=== PATIENT | female | born 1995 | race Caucasian/White ===

== ENCOUNTER 2017-04-04 15:43 | Emergency (ER) | payer OTHER ==
[2017-04-04 15:50] VITALS: BP 125/85; PULSE 72; TEMP 97.9; BMI 20.1
--- NOTE | 2017-04-04 15:59 | PDOC ---
History of Present Illness - General History Source: Patient Exam Limitations: No Limitations - History of Present Illness Initial Comments: 04/04/17 16:06 Patient is a 21 year old female with no significant past medical history who presents to the ED with abdominal cramping and dark stool. Patient reports 3 episodes of black stool today. Patient reports blood upon wiping. Patient states that she has been experiencing intermittent bleeding upon wiping for 1 month. She reports straining during bowel movements. She reports acid reflux on Tuesday that she took pepto bismol. She reports that her abdominal cramping and acid reflux improved from the pepto bismol. Denies having colonoscopy, endoscopy or hemorrhoid hx. Patient denies any GI hx. Patient denies vaginal bleeding. Allergy: NKA <Aarti Richmond - Last Filed: 04/04/17 16:24> - General History Source: Patient Exam Limitations: No Limitations <Mayito Thomas - Last Filed: 04/04/17 17:18> - General Chief Complaint: Pain Stated Complaint: ABDOMINAL CRAMPING, BLOOD IN STOOL Time Seen by Provider: 04/04/17 15:47 Past History <Aarti Richmond - Last Filed: 04/04/17 16:24> - Past Medical History Thyroid Disease: No Other medical history: cervical displacia,HPV 16 - Psycho/Social/Smoking Cessation Hx Anxiety: No Suicidal Ideation: No Smoking History: Never smoked Number of Cigarettes Smoked Daily: 0 Information on smoking cessation initiated: No Hx Alcohol Use: No Drug/Substance Use Hx: No Substance Use Type: None <Mayito Thomas - Last Filed: 04/04/17 17:18> - Past Medical History Allergies/Adverse Reactions: Allergies Allergy/AdvReac Type Severity Reaction Status Date / Time No Known Allergies Allergy Verified 04/04/17 15:50 Home Medications: Ambulatory Orders NK [No Known Home Medication] 04/04/17 Review of Systems - Review of Systems Able to Perform ROS?: Yes Comments:: 04/04/17 16:16 GENERAL/CONSTITUTIONAL: No fever or chills. No weakness. HEAD, EYES, EARS, NOSE AND THROAT: No change in vision. No ear pain or discharge. No sore throat. CARDIOVASCULAR: No chest pain or shortness of breath. RESPIRATORY: No cough, wheezing, or hemoptysis. GASTROINTESTINAL:(+)abdominal cramping, (+)black stool, (+)nausea. No vomiting, diarrhea or constipation. GENITOURINARY: No dysuria, frequency, or change in urination. MUSCULOSKELETAL: No joint or muscle swelling or pain. No neck or back pain. SKIN: No rash NEUROLOGIC: No headache, vertigo, loss of consciousness, or change in strength/ sensation. ENDOCRINE: No increased thirst. No abnormal weight change. HEMATOLOGIC/LYMPHATIC: No anemia, easy bleeding, or history of blood clots. ALLERGIC/IMMUNOLOGIC: No hives or skin allergy. <Arati Richmond - Last Filed: 04/04/17 16:24> *Physical Exam - Vital Signs Last Vital Signs Temp Pulse Resp BP Pulse Ox 97.9 F 72 18 125/85 100 04/04/17 15:47 04/04/17 15:47 04/04/17 15:47 04/04/17 15:47 04/04/17 15:47 - Physical Exam Comments: 04/04/17 16:16 GENERAL: Awake, alert, and fully oriented, in no acute distress HEAD: No signs of trauma EYES: PERRLA, EOMI, sclera anicteric, conjunctiva clear ENT: Auricles normal inspection, hearing grossly normal, nares patent, oropharynx clear without exudates. Moist mucosa NECK: Normal ROM, supple, no lymphadenopathy, JVD, or masses LUNGS: Breath sounds equal, clear to auscultation bilaterally. No wheezes, and no crackles HEART: Regular rate and rhythm, normal S1 and S2, no murmurs, rubs or gallops ABDOMEN: Soft, nontender, normoactive bowel sounds. No guarding, no rebound. No masses EXTREMITIES: Normal range of motion, no edema. No clubbing or cyanosis. No cords, erythema, or tenderness NEUROLOGICAL: Cranial nerves II through XII grossly intact. Normal speech, normal gait SKIN: Warm, Dry, normal turgor, no rashes or lesions noted. RECTAL EXAM: No fissions, no hemorrhoid, no tares. <Aarti Richmond - Last Filed: 04/04/17 16:24> - Vital Signs Last Vital Signs Temp Pulse Resp BP Pulse Ox 97.9 F 72 18 125/85 100 04/04/17 15:47 04/04/17 15:47 04/04/17 15:47 04/04/17 15:47 04/04/17 15:47 <Mayito Thomas - Last Filed: 04/04/17 17:18> ED Treatment Course - LABORATORY CBC & Chemistry Diagram: 04/04/17 16:08 04/04/17 16:08 <Aarti Richmond - Last Filed: 04/04/17 16:24> - LABORATORY CBC & Chemistry Diagram: 04/04/17 16:08 04/04/17 16:08 <Mayito Thomas - Last Filed: 04/04/17 17:18> Medical Decision Making - Medical Decision Making 04/04/17 15:57 A portion of this note was documented by scribe services under my direction. I have reviewed the details of the note, within reason, and agree with the documentation with the following case summary and management plan written by me. Patient treated in the ED. Nursing notes are reviewed and incorporated into the medical decision-making. Vital signs reviewed. Peripheral IV access obtained by the nurse, laboratory studies are drawn and sent, reviewed and interpreted by myself. Vital Signs Temp Pulse Resp BP Pulse Ox 97.9 F 72 18 125/85 100 04/04/17 15:47 04/04/17 15:47 04/04/17 15:47 04/04/17 15:47 04/04/17 15:47 21-year-old female with no past medical history presents with abdominal cramping and dark stools. Patient reports that intermittently for the last several months, the patient has been having bleeding upon wiping but no dark stools. 2 days ago, patient had developed acid reflux and a taken Pepto-Bismol. She reported abdominal cramping improved but noticed today that she had treat 3 separate episodes of dark stooling. Denies history of hemorrhoids. Never had a colonoscopy or endoscopy. Patient denies any family history of gastrointestinal disorders. Patient denies vaginal bleeding. Differential includes upper GI bleed, hemorrhoids, versus medication related secondary to Pepto-Bismol. We'll obtain labs to check a CBC and send a stool occult. If workup is negative, it may be possible that this is secondary to Pepto-Bismol. 04/04/17 17:16 CBC, BMP 04/04/17 16:08 04/04/17 16:08 CMP Sodium 137 mmol/L (136-145) 04/04/17 16:08 Potassium 3.7 mmol/L (3.5-5.1) 04/04/17 16:08 Chloride 103 mmol/L (98-107) 04/04/17 16:08 Carbon Dioxide 22 mmol/L (22-28) 04/04/17 16:08 Anion Gap 12 (8-16) 04/04/17 16:08 BUN 12 mg/dl (7-18) 04/04/17 16:08 Creatinine 0.6 mg/dl (0.6-1.3) 04/04/17 16:08 Creat Clearance w eGFR > 60 (>60) 04/04/17 16:08 Random Glucose 100 mg/dl (74-106) 04/04/17 16:08 Calcium 9.8 mg/dl (8.4-10.2) 04/04/17 16:08 Total Bilirubin 0.5 mg/dl (0.2-1.0) 04/04/17 16:08 AST 18 U/L (10-42) 04/04/17 16:08 ALT 16 U/L (10-40) 04/04/17 16:08 Alkaline Phosphatase 63 U/L (32-92) 04/04/17 16:08 Total Protein 8.1 g/dl (6.4-8.3) 04/04/17 16:08 Albumin 4.8 g/dl (3.5-5.0) 04/04/17 16:08 Lipase 31 U/L (22-51) 04/04/17 16:08 Serum , Qual Negative 04/04/17 15:55 Stool occult negative. Pt feels reassurred. Return precautions given including worsening abdominal pain or uncontrollable bleeding. Pt does report that she does strain and have some constipation. She reports straining and then blood on wiping. This may be internal hemorrhoids. High fiber diet advised. Will refer to a GI physician. I discussed the physical exam findings, ancillary test results and final diagnoses with the patient. I answered all of the patient's questions. The patient was satisfied with the care received and felt comfortable with the discharge plan and treatment plan. The patient will call their primary care physician within 24 hours to arrange follow-up and will return to the Emergency Department with any new, persistant or worsening symptoms. <Mayito Thomas - Last Filed: 04/04/17 17:18> *DC/Admit/Observation/Transfer - Attestations Scribe Attestion: 04/04/17 16:17 Documentation prepared by [place] Crabtree, acting as medical biller/coder for Mayito Thomas MD. <Aarti Richmond - Last Filed: 04/04/17 16:24> - Discharge Dispostion Admit: No <Mayito Thomas - Last Filed: 04/04/17 17:18> Diagnosis at time of Disposition: Dark stools - Discharge Dispostion Disposition: HOME Condition at time of disposition: Good - Referrals Referrals: Silvano Noonan MD [Staff Physician] - - Patient Instructions Printed Discharge Instructions: DI for Rectal Bleeding Additional Instructions: The dark stools was tested in the ER. This is not blood. This is likely from your peptol bismol. Please make an appointment with a GI doctor.
[2017-04-04 16:22] LABS: BASOPHIL 1.6 % (0-2.0); EOSINOPHIL 0.5 % (0-4.5); MCH 30.3 pg (25.7-33.7); MCHC 34.5 g/dl (32.0-36.0); MEAN PLT VOLUME 9.9 fl (7.5-11.1); NEUTROPHILS 62.5 % (42.8-82.8); PLATELET COUNT 287 K/MM3 (134-434); RDW 12.1 % (11.6-15.6); WHITE BLOOD COUNT 11.1 K/mm3 (4.0-10.8)
[2017-04-04 16:36] LABS: ACTIVATED PTT 32.1 SECONDS (24.0-38.9)
[2017-04-04 16:41] LABS: INR 1.1 (0.82-1.09); PROTHROMBIN TIME (PATIENT) 12.3 SEC (10.2-13.0)
[2017-04-04 16:51] LABS: STOOL FOR OCCULT BLOOD NEGATIVE (NEGATIVE)
[2017-04-04 16:55] LABS: ALBUMIN 4.8 g/dl (3.5-5.0); ALK PHOS 63 U/L (32-92); ANION GAP 12 (8-16); BILIRUBIN,TOTAL 0.5 mg/dl (0.2-1.0); CALCIUM 9.8 mg/dl (8.4-10.2); CO2 22 mmol/L (22-28); CREATININE 0.6 mg/dl (0.6-1.3); GLUCOSE,RANDOM 100 mg/dl (74-106); SGOT/AST 18 U/L (10-42); SGPT/ALT 16 U/L (10-40); TOT PROT 8.1 g/dl (6.4-8.3)
== END 2017-04-04 17:22 | disposition home or self-care (01) ==
LOC: FER 15:43
DX: K92.1 Melena (principal)
CPT/HCPCS: 36415; 80053; 82272; 83690; 84703; 85025; 85610; 85730; 99283-25

== ENCOUNTER 2017-06-29 10:03 | Emergency (ER) | payer OTHER ==
[2017-06-29 10:09] VITALS: BP 109/76; PULSE 71; TEMP 98.4; BMI 20.1
--- NOTE | 2017-06-29 10:46 | PDOC ---
History of Present Illness - General Chief Complaint: Headache Stated Complaint: HEADACHE Time Seen by Provider: 06/29/17 10:05 - History of Present Illness Initial Comments: 06/29/17 11:03 Chief complaint: Headache History of present illness: Patient complains of a headache for 3 days, present upon awakening and persistent throughout the day. She has taken only 2 OTC Advil and again one OTC Advil at separate times yesterday without relief. She has also noted some small swollen lymph nodes in the neck and this morning developed a "cold sore" on her right upper lip. However, she has no other symptoms of infection. Review of systems: Denies URI symptoms, sore throat, cough, urinary tract symptoms, vaginal discharge. She is having her regular menstrual period now. Denies chest pain, shortness of breath, abdominal pain, nausea, vomiting, diarrhea, visual or focal neurologic symptoms, unsteadiness of gait. Past medical history: LEEP procedure for an abnormal Pap smear, takes control pills, otherwise no significant past or present medical or surgical history. 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 Family history significant only for diabetes in grandparents. Parents healthy. Siblings healthy Physical exam: Alert and oriented 3, well-developed well-nourished, no acute distress, complaining of headache but does not appear uncomfortable Afebrile, vital signs normal PERRLA 4 mm, funduscopic exam shows some lack of definition of the inferior optic disc and decreased venous pulsations bilaterally. ENT clear except for herpes lesion of the right upper lip. Neck supple without bruits or mass. There are shotty 1 cm nodes bilaterally, freely movable, minimally tender Lungs clear to P&A CV regular without murmur rub or gallop no tachycardia Abdomen benign Skin clear no rash adequate turgor and wet mucous membranes Extremities no CCE. No muscle or joint inflammation or tenderness Impression: Headache, intractable, seemingly unrelated to stress, with no chronic headache history. Fundi not entirely normal, however, herpes simplex lesion and cervical adenopathy suggest viral infection Plan: Analgesics and observation. Consider imaging. Past History - Past Medical History Allergies/Adverse Reactions: Allergies Allergy/AdvReac Type Severity Reaction Status Date / Time No Known Allergies Allergy Verified 06/29/17 10:04 Home Medications: Ambulatory Orders Norgestimate-Ethinyl Estradiol [[place]] 1 each PO DAILY 06/29/17 Thyroid Disease: No - Psycho/Social/Smoking Cessation Hx Anxiety: No Suicidal Ideation: No Smoking History: Never smoked Number of Cigarettes Smoked Daily: 0 Hx Alcohol Use: Yes Drug/Substance Use Hx: No Substance Use Type: Alcohol *Physical Exam - Vital Signs Last Vital Signs Temp Pulse Resp BP Pulse Ox 98.4 F 71 14 109/76 100 06/29/17 10:03 06/29/17 10:03 06/29/17 10:03 06/29/17 10:03 06/29/17 10:03 Medical Decision Making - Medical Decision Making 06/29/17 12:49 CT is negative. Most likely etiology is a viral infection. Hydration, rest, and adequate doses of Advil, Aleve, or Tylenol recommended. Follow-up with urologist if no improvement. Referral given. Patient fully ambulatory and in no significant distress, improved with administration of ibuprofen, to follow-up as directed. *DC/Admit/Observation/Transfer Diagnosis at time of Disposition: Headache Qualifiers: Headache type: tension-type Headache chronicity pattern: acute headache - Discharge Dispostion Disposition: HOME Condition at time of disposition: Improved Admit: No - Referrals Referrals: Ray Cordero DO [Staff Physician] - - Patient Instructions Printed Discharge Instructions: DI for Headache - Post Discharge Activity Work/School Note: Back to Work
[2017-06-29] MEDS ORDERED: IBUPROFEN 400 MG TABLET (FP) PO ONE ×2 (10:47→11:09)
[2017-06-29 11:08] LABS: URINE APPEARANCE Clear; URINE BILIRUBIN Negative (NEGATIVE); URINE COLOR YELLOW; URINE GLUCOSE (UA) Negative (NEGATIVE); URINE KETONE Negative (NEGATIVE); URINE LEUK ESTERASE Negative (NEGATIVE); URINE NITRITE Negative (NEGATIVE); URINE PROTEIN Negative (NEGATIVE); URINE UROBILINOGEN 0.2 (0.2-1.0)
[2017-06-29 19:47] LABS: URINE BLOOD 2+ (NEGATIVE)
== END 2017-06-29 12:59 | disposition home or self-care (01) ==
LOC: FER 10:03
DX: G44.209 Tension-type headache, unspecified, not intractable (principal)
CPT/HCPCS: 70450-TC; 81003; 84703; 87070; 87430; 99282-25